=== PATIENT | female | born 1945 | race Caucasian/White ===

== ENCOUNTER 2020-07-12 07:20 | Emergency (ER) | payer MEDICARE, OTHER ==
[2020-07-12 07:36] VITALS: BP 164/81; PULSE 53
--- NOTE | 2020-07-12 08:03 | EDM.PDOC ---
ED HPI GENERAL MEDICAL PROBLEM - General Chief Complaint: Neuro Symptoms/Deficits Stated Complaint: LEG AND ARM WEAKNESS Time Seen by Provider: 07/12/20 07:30 Source of Information: Reports: Patient History Limitations: Reports: No Limitations - History of Present Illness INITIAL COMMENTS - FREE TEXT/NARRATIVE: 74 YO WF PRESENTS TO ER WITH WORSENING LEFT SIDED WEAKNESS THIS AM. PT WENT TO BED AROUND 10:30PM LAST NIGHT AND WHEN SHE WOKE THIS AM AROUND 6AM SHE PUT HER FEET ON THE FLOOR AND WHEN SHE STOOD UP SHE LOST HER BALANCE LANDING BACK ON THE BED. PT REPORTS SHE ATTEMPTED TO GET UP A FEW MORE TIMES AND EVENTUALLY WAS ABLE TO AMBULATE TO THE CAR FOR TRANSPORT TO THE HOSPITAL BY HER . PT REPORTS SHE HAS FIBROMYALGIA AND HAS WEAKNESS FROM TIME TO TIME BUT STATES THIS AM IT WAS MUCH WORSE. PT DENIES HEADACHE, CHEST PAIN, OR NECK PAIN. PT REPORTS DIZZINESS BUT DENIES DIAPHORESIS, NAUSEA OR SHORTNESS OF BREATH. PT REPORTS HISTORY OF PROGRESSIVE GENERALIZED WEAKNESS OVER THE LAST 2 MONTHS. PT DENIES FEVER/CHILLS, NO RECENT ILLNESS OR URI SYMPTOMS. Onset: Unknown/Unsure Duration: Getting Worse Location: Reports: Upper Extremity, Left, Lower Extremity, Left Severity: Moderate Improves with: Reports: None Worsens with: Reports: Movement Associated Symptoms: Reports: No Other Symptoms, Weakness. 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 - Related Data Allergies Allergy/AdvReac Type Severity Reaction Status Date / Time venom-honey bee Allergy Severe Hives Verified 07/12/20 07:52 [bee venom (honey bee)] meperidine HCl [From Demerol] Allergy Hives Verified 07/12/20 07:52 methylprednisolone sodium Allergy Numbness Verified 07/12/20 07:52 succinate [From Solu-Medrol] morphine Allergy Hives Verified 07/12/20 07:52 Penicillins Allergy Edema Verified 07/12/20 07:52 technetium-99m Allergy Itching Verified 07/12/20 07:52 triamcinolone acetonide Allergy Numbness Verified 07/12/20 07:52 [From Kenalog] Home Meds: Home Meds Acetaminophen [Tylenol Arthritis] 650 mg PO ASDIRECTED PRN 10/05/13 [History] Albuterol [Ventolin HFA] 2 puff INH Q4H PRN 10/05/13 [History] Amitriptyline [Elavil] 100 mg PO DAILY 10/05/13 [History] Aspirin [Adult Low Dose Aspirin EC] 81 mg PO DAILY 10/05/13 [History] Cholecalciferol (Vitamin D3) [Vitamin D-3] 2,000 unit PO DAILY 10/05/13 [History] Docusate Calcium [Stool Softener] 2 tab PO DAILY 10/05/13 [History] EPINEPHrine [Epinephrine] 0.3 mg IM ASDIRECTED PRN 10/05/13 [History] Metoprolol Tartrate 25 mg PO BID 10/05/13 [History] Nitroglycerin [Nitrostat] 0.4 mg SL ASDIRECTED PRN 10/05/13 [History] Omeprazole 20 mg PO BIDAC 10/05/13 [History] Calcium Carb, Citrate/Vit D3 [Calcium + D3 ER Tablet] 1 tab PO DAILY 08/19/16 [History] Escitalopram [Lexapro] 25 mg PO DAILY 08/19/16 [History] Fluconazole [Diflucan] 150 mg PO DAILY PRN 08/19/16 [History] Levothyroxine 25 mcg PO ACBREAKFAST 08/19/16 [History] Nystatin/Triamcin [Nystatin-Triamcinolone Cream] 1 applic TOP BID 08/19/16 [History] Simvastatin [Zocor] 10 mg PO BEDTIME 08/19/16 [History] Cetirizine HCl [Zyrtec] 10 mg PO DAILY PRN 08/22/16 [History] Albuterol Sulfate 3 ml NEB QID PRN 07/12/20 [History] Albuterol/Ipratropium [DuoNeb 3.0-0.5 MG/3 ML] 3 ml INH Q4H PRN 07/12/20 [History] Meloxicam [Mobic] 7.5 mg PO DAILY 07/12/20 [History] Non-Formulary Medication [NF Drug] 1 tsp PO QID PRN 07/12/20 [History] Oxybutynin Chloride [Oxybutynin Chloride ER] 10 mg PO DAILY 07/12/20 [History] buPROPion HCL [Bupropion HCl Sr] 150 mg PO BID 07/12/20 [History] ED ROS GENERAL - Review of Systems Review Of Systems: See Below Constitutional: Reports: Weakness HEENT: Reports: No Symptoms Respiratory: Reports: No Symptoms Cardiovascular: Reports: Lightheadedness Endocrine: Reports: No Symptoms GI/Abdominal: Reports: No Symptoms : Reports: No Symptoms Musculoskeletal: Reports: No Symptoms Skin: Reports: No Symptoms Neurological: Reports: Dizziness, Numbness, Pre-Existing Deficit, Difficulty Walking, Weakness, Gait Disturbance. Denies: Confusion, Headache, Trouble Sp eaking, Change in Speech Psychiatric: Reports: No Symptoms Hematologic/Lymphatic: Reports: No Symptoms Immunologic: Reports: No Symptoms ED EXAM, NEURO - Physical Exam Exam: See Below Exam Limited By: No Limitations General Appearance: Alert, WD/WN, No Apparent Distress Eye Exam: Bilateral Eye: EOMI, PERRL Throat/Mouth: Normal Inspection, Normal Lips, Normal Teeth, Normal Gums, Normal Oropharynx, Normal Voice, No Airway Compromise Head Exam: Atraumatic, Normocephalic Neck: Normal Inspection, Supple, Non-Tender, Full Range of Motion Respiratory/Chest: No Respiratory Distress, Lungs Clear, Normal Breath Sounds, No Accessory Muscle Use, Chest Non-Tender Cardiovascular: Normal Peripheral Pulses, Regular Rate, Rhythm, No Edema, No Gallop, No JVD, No Murmur, No Rub GI/Abdominal: Normal Bowel Sounds, Soft, Non-Tender, No Organomegaly, No Distention, No Abnormal Bruit, No Mass Neurological: Alert, Normal Mood/Affect, Normal Dorsiflexion, CN II-XII Intact, Normal Plantar Flexion, Normal Reflexes, Oriented x 3, Withdraws to Pain, Abnormal Light Touch, Difficulty Walking. No: Abnormal Finger to Nose, Abnormal Sensation, Abnormal Motor, Saddle Anesthesia Back Exam: Normal Inspection, Full Range of Motion, NT Extremities: Normal Inspection, Normal Range of Motion, Non-Tender, No Pedal Edema, Normal Capillary Refill Psychiatric: Normal Affect, Normal Mood Skin Exam: Warm, Dry, Intact, Normal Color, No Rash EKG INTERPRETATION EKG Date: 07/12/20 Time: 07:55 Rhythm: NSR Rate (Beats/Min): 50 [place]: Normal P-Wave: Present QRS: Normal ST-T: Normal QT: Normal Course - Vital Signs Last Recorded V/S: Last Vital Signs Temp 36.2 C 07/12/20 07:26 Pulse 53 L 07/12/20 07:26 Resp 18 07/12/20 07:26 BP 164/81 H 07/12/20 07:26 Pulse Ox 96 07/12/20 07:26 - Orders/Labs/Meds Orders: Active Orders 24 hr Category Date Time Status EKG Documentation Completion [RC] ASDIRECTED Care 07/12/20 07:43 Active Sodium Chloride 0.9% [Normal Saline] 1,000 ml Med 07/12/20 08:30 Active IV ASDIRECTED EKG 12 Lead [EK] Stat Ther 07/12/20 07:42 Ordered Medication Orders Sodium Chloride (Normal Saline) 1,000 mls @ 125 mls/hr IV ASDIRECTED MARCELINA Labs: Laboratory Tests 07/12/20 07/12/20 07/12/20 Range/Units 07:32 07:32 07:32 WBC 6.55 (5.00-10.00) 10^3/uL RBC 3.62 L (3.80-5.50) 10^6/uL Hgb 12.4 (12.0-16.0) g/dL Hct 36.6 L (37.0-47.0) % MCV 101.1 H (82.0-92.0) fL MCH 34.3 H (27.0-31.0) pg MCHC 33.9 (32.0-36.0) g/dL RDW 12.7 (11.5-14.5) % Plt Count 243 (150-400) 10^3/uL MPV 8.8 (7.4-10.4) fL Immature Gran % (Auto) 0.5 (0.0-5.0) % Neut % (Auto) 56.4 (50.0-70.0) % Lymph % (Auto) 29.8 (20.0-40.0) % [place] % (Auto) 9.3 H (2.0-8.0) % Eos % (Auto) 3.5 H (1.0-3.0) % Baso % (Auto) 0.5 (0.0-1.0) % Neut # (Auto) 3.70 (2.50-7.00) 10^3/uL Lymph # (Auto) 1.95 (1.00-4.00) 10^3/uL [place] # (Auto) 0.61 (0.10-0.80) 10^3/uL Eos # (Auto) 0.23 (0.10-0.30) 10^3/uL Baso # (Auto) 0.03 (0.00-0.10) 10^3/uL Immature Gran # (Auto) 0.03 (0.00-0.50) 10^3/uL PT 9.7 (9.2-11.2) SEC INR 1.0 (0.9-1.1) APTT 25.3 (22.8-31.4) SEC Sodium 130 L (136-145) mmol/L Potassium 4.4 (3.3-5.3) mmol/L Chloride 96 L (98-115) mmol/L Carbon Dioxide 28.8 (21.0-32.0) mmol/L Anion Gap 9.6 (5-15) mmol/L BUN 24 (6-25) mg/dL Creatinine 0.79 (0.51-1.17) mg/dL Est Cr Clr Drug Dosing 50.12 mL/min Estimated GFR (MDRD) > 60 mL/min Glucose 108 H (75 - 99) mg/dL Calcium 8.0 L (8.7-10.3) mg/dL Creatine Kinase 72 (26-276) U/L CK-MB (CK-2) 2.00 (0.00-4.30) ng/mL Troponin I 0.07 (0.00-0.070) ng/mL Meds: Medications Generic Name Dose Route Start Last Admin Trade Name Freq PRN Reason Stop Dose Admin Sodium Chloride 1,000 mls @ 125 mls/hr 07/12/20 08:30 Normal Saline IV ASDIRECTED MARCELINA Discontinued Medications Generic Name Dose Route Start Last Admin Trade Name Freq PRN Reason Stop Dose Admin Aspirin 324 mg 07/12/20 08:42 Aspirin PO 07/12/20 08:43 ONETIME ONE - Radiology Interpretation Free Text/Narrative:: CT HEAD-NAD CXR-NAD Departure - Departure Time of Disposition: 08:56 Disposition: DC/Tfer to Acute Hospital 02 Condition: Fair Clinical Impression: Weakness, Bradycardia, Hyponatremia - Discharge Information Forms: ED Department Discharge, Interfacility Transfer EMTALA Sepsis Event Note (ED) - Evaluation Sepsis Screening Result: No Definite Risk - Focused Exam Vital Signs: Vital Signs Temp Pulse Resp BP Pulse Ox 07/12/20 07:26 36.2 C 53 L 18 164/81 H 96 - My Orders Last 24 Hours: My Active Orders 07/12/20 07:42 EKG 12 Lead [EK] Stat 07/12/20 07:43 EKG Documentation Completion [RC] ASDIRECTED 07/12/20 08:30 Sodium Chloride 0.9% [Normal Saline] 1,000 ml IV ASDIRECTED - Assessment/Plan Last 24 Hours: My Active Orders 07/12/20 07:42 EKG 12 Lead [EK] Stat 07/12/20 07:43 EKG Documentation Completion [RC] ASDIRECTED 07/12/20 08:30 Sodium Chloride 0.9% [Normal Saline] 1,000 ml IV ASDIRECTED Assessment:: 1. WEAKNESS 2. HYPONATREMIA 3. BRADYCARDIA Plan: 1. TRANSFER TO [facility] FOR FURTHER EVALUATION AND TREATMENT- DR PINK 2. SUPPORTIVE CARE 3. NS@125CC/HR 4. ASA 325MG NOW 5. O2 NEEDED
[2020-07-12 08:14] LABS: ANION GAP 9.6 mmol/L (5-15); CHLORIDE,CL 96 mmol/L (98-115); SODIUM,NA 130 mmol/L (136-145)
--- NOTE | 2020-07-12 08:19 | CT ---
[id number] CT/CT Head Stroke Protocol EXAM: CT Head Stroke Protocol CLINICAL DATA: INCREASED WEAKNESS/NUMBNESS COMPARISON STUDY: None FINDINGS: No intracranial hemorrhage, extra-axial fluid collection, mass, or acute ischemia. No hydrocephalus. Mild to moderate diffuse parenchymal atrophy and areas of hypodensity in the subcortical and periventricular white matter. Combination of findings are commonly seen as sequela of chronic small vessel disease. Paranasal sinuses and mastoid air cells are clear. IMPRESSION: No acute intracranial findings. Results relayed to Jaylon Trujillo at time of dictation. Catracho Cole MD 07/12/20 0818 Thank you for allowing us to participate in the care of your patient.
--- NOTE | 2020-07-12 08:20 | CR ---
[id number] RAD/RAD Chest PA And Lateral EXAM: RAD Chest PA And Lateral INDICATION: WEAKNESS. COMPARISON: None. DISCUSSION: Cardiomediastinal silhouette is normal in size and contour. No infiltrate, effusion, pneumothorax, or edema. IMPRESSION: Negative examination of the chest. Catracho Cole MD 07/12/20 0818 Thank you for allowing us to participate in the care of your patient.
[2020-07-12 08:22] LABS: PTT,PARTIAL THROMBOPLSTIN TIME 25.3 SEC (22.8-31.4)
[2020-07-12] MEDS ORDERED: Sodium Chloride 0.9% 1,000 ML IV SCH (08:30)
[2020-07-12] MEDS ORDERED: Aspirin 81 MG Tab.Chew PO ONE (08:42)
== END 2020-07-12 10:20 ==
LOC: KA.ED 07:20
DX: E87.1 Hypo-osmolality and hyponatremia (principal); R00.1 Bradycardia, unspecified; Z91.030 Bee allergy status; Z88.5 Allergy status to narcotic agent; Z88.0 Allergy status to penicillin; Z88.8 Allergy status to other drugs, medicaments and biological substances; Z79.82 Long term (current) use of aspirin; Z79.899 Other long term (current) drug therapy
CPT/HCPCS: 36415; 70450; 71046; 80048; 82550; 82553; 84484; 85025; 85610; 85730; 96360; 99284; 99285-25; A9270-GY; J7030

== ENCOUNTER 2020-10-10 14:03 | Emergency (ER) | payer MEDICARE, OTHER ==
[2020-10-10] MEDS: EPINEPHrine 1:10,000 1 MG/10 ML Syringe IVPUSH ONE ×5 (14:08→14:44)
[2020-10-10] MEDS: Sodium Chloride 0.9% 1,000 ML IV ONE (14:11)
[2020-10-10] MEDS ORDERED: Sodium Chloride 0.9% 10 ML Syringe FLUSH PRN (14:11)
[2020-10-10] MEDS: Amiodarone 150 MG/3 ML SDV IVPUSH ONE (14:15)
[2020-10-10] MEDS: Sodium Bicarbonate 8.4% 50 MEQ/50 ML Syringe IVPUSH SCH (14:28)
[2020-10-10] MEDS: Norepinephrine 4 MG in Dextrose 5% in Water 246 ML IV SCH ×2 (14:46)
[2020-10-10 14:47] LABS: PTT,PARTIAL THROMBOPLSTIN TIME 28.6 SEC (22.8-31.4)
--- NOTE | 2020-10-10 14:50 | EDM.PDOC ---
ED HPI GENERAL MEDICAL PROBLEM - General Chief Complaint: Respiratory Problem Stated Complaint: CARDIAC ARREST Time Seen by Provider: 10/10/20 14:03 Source of Information: Reports: EMS History Limitations: Reports: Respiratory Distress - History of Present Illness INITIAL COMMENTS - FREE TEXT/NARRATIVE: 74 YO WF PRESENTS TO ER IN CARDIAC ARREST FROM HOME. PT CALLED EMS DUE TO R ESPIRATORY DISTRESS. UPON ARRIVAL BY EMS PT BECAME UNRESPONSIVE. CPR WAS PERFORMED. UPON ARRIVAL TO ER EPI/BICARB/AMIODARONE WERE GIVEN AND PULSE WITH RETURN OF CIRCULATION. TRANSFER HAS BEEN ARRANGED BY [facility] Onset: Sudden Location: Reports: Generalized Severity: Severe - Related Data Allergies Allergy/AdvReac Type Severity Reaction Status Date / Time venom-honey bee Allergy Severe Hives Verified 07/12/20 07:52 [bee venom (honey bee)] meperidine HCl [From Demerol] Allergy Hives Verified 07/12/20 07:52 methylprednisolone sodium Allergy Numbness Verified 07/12/20 07:52 succinate [From Solu-Medrol] morphine Allergy Hives Verified 07/12/20 07:52 Penicillins Allergy Edema Verified 07/12/20 07:52 technetium-99m Allergy Itching Verified 07/12/20 07:52 triamcinolone acetonide Allergy Numbness Verified 07/12/20 07:52 [From Kenalog] Home Meds: Home Meds Acetaminophen [Tylenol Arthritis] 650 mg PO ASDIRECTED PRN 10/05/13 [History] Albuterol [Ventolin HFA] 2 puff INH Q4H PRN 10/05/13 [History] Amitriptyline [Elavil] 100 mg PO DAILY 10/05/13 [History] Aspirin [Adult Low Dose Aspirin EC] 81 mg PO DAILY 10/05/13 [History] Cholecalciferol (Vitamin D3) [Vitamin D-3] 2,000 unit PO DAILY 10/05/13 [History] Docusate Calcium [Stool Softener] 2 tab PO DAILY 10/05/13 [History] EPINEPHrine [Epinephrine] 0.3 mg IM ASDIRECTED PRN 10/05/13 [History] Metoprolol Tartrate 25 mg PO BID 10/05/13 [History] Nitroglycerin [Nitrostat] 0.4 mg SL ASDIRECTED PRN 10/05/13 [History] Omeprazole 20 mg PO BIDAC 10/05/13 [History] Calcium Carb, Citrate/Vit D3 [Calcium + D3 ER Tablet] 1 tab PO DAILY 08/19/16 [History] Escitalopram [Lexapro] 25 mg PO DAILY 08/19/16 [History] Fluconazole [Diflucan] 150 mg PO DAILY PRN 08/19/16 [History] Levothyroxine 25 mcg PO ACBREAKFAST 08/19/16 [History] Nystatin/Triamcin [Nystatin-Triamcinolone Cream] 1 applic TOP BID 08/19/16 [History] Simvastatin [Zocor] 10 mg PO BEDTIME 08/19/16 [History] Cetirizine HCl [Zyrtec] 10 mg PO DAILY PRN 08/22/16 [History] Albuterol Sulfate 3 ml NEB QID PRN 07/12/20 [History] Albuterol/Ipratropium [DuoNeb 3.0-0.5 MG/3 ML] 3 ml INH Q4H PRN 07/12/20 [History] Meloxicam [Mobic] 7.5 mg PO DAILY 07/12/20 [History] Non-Formulary Medication [NF Drug] 1 tsp PO QID PRN 07/12/20 [History] Oxybutynin Chloride [Oxybutynin Chloride ER] 10 mg PO DAILY 07/12/20 [History] buPROPion HCL [Bupropion HCl Sr] 150 mg PO BID 07/12/20 [History] Past Medical History HEENT History: Reports: Hard of Hearing, Impaired Vision Cardiovascular History: Reports: CAD, High Cholesterol, Hypertension Respiratory History: Reports: Asthma, Bronchitis, Recurrent Gastrointestinal History: Reports: Diverticulosis, GERD Genitourinary History: Reports: Other (See Below) Other Genitourinary History: overactive bladder, atrophic vaginitis Musculoskeletal History: Reports: Fibromyalgia, Osteoarthritis Psychiatric History: Reports: Depression Endocrine/Metabolic History: Reports: Multinodular Thyroid - Infectious Disease History Infectious Disease History: Reports: Herpes - Past Surgical History Cardiovascular Surgical History: Reports: Percutaneous Transluminal Angioplasty Respiratory Surgical History: Reports: None GI Surgical History: Reports: Colonoscopy Endocrine Surgical History: Reports: Thyroid Biopsy Social & Family History - Family History Family Medical History: No Pertinent Family History ED ROS GENERAL - Review of Systems Review Of Systems: Comprehensive ROS is negative, except as noted in HPI. Constitutional: Denies: Fever, Chills ED EXAM, CPR - Physical Exam Exam: See Below Limited By: Unresponsive General Appearance: Severe Distress Throat/Mouth: Normal Inspection, Normal Lips, Normal Teeth, Normal Gums, Normal Oropharynx, Normal Voice, No Airway Compromise Head: Atraumatic, Normocephalic Respiratory Chest: Respiratory Distress Cardiovascular: Normal Pulse, Normal Peripheral Pulses, Regular Rate, Rhythm, No Gallop, No JVD, No Murmur, No Rub GI/Abdominal Exam: Soft, No Mass, Distended #1 Interpretation EKG Date: 10/10/20 Time: 14:28 Rhythm: NSR Rate (Beats/Min): 91 [place]: LAD-Left [place] Deviation Comparison: NA - No Prior EKG Course - Orders/Labs/Meds Orders: Active Orders 24 hr Category Date Time Status Blood Pressure Mgt: Sepsis [RC] Q15MX2 Care 10/10/20 14:12 Active Cardiac Monitoring [RC] CONTINUOUS Care 10/10/20 14:12 Active EKG Documentation Completion [RC] ASDIRECTED Care 10/10/20 14:12 Active COMPREHENSIVE METABOLIC PN,CMP [CHEM] Stat Lab 10/10/20 14:19 Received CULTURE BLOOD [BC] Stat Lab 10/10/20 14:12 Ordered CULTURE BLOOD [BC] Stat Lab 10/10/20 14:12 Ordered REFLEX LACTIC ACID YES OR NO [CHEM] Routine Lab 10/10/20 14:53 Received TROPONIN I [CHEM] Stat Lab 10/10/20 14:19 Received UA W/MICROSCOPIC [URIN] Stat Lab 10/10/20 14:11 Ordered Sodium Chloride 0.9% [Saline Flush] Med 10/10/20 14:11 Active 10 ml FLUSH Q8HR PRN Blood Culture x2 Reflex Set [OM.PC] Stat Oth 10/10/20 14:11 Ordered Saline Lock Insert [OM.PC] Stat Oth 10/10/20 14:11 Ordered Severe Sepsis Onset Time [OM.PC] Stat Oth 10/10/20 14:11 Ordered EKG 12 Lead [EK] Stat Ther 10/10/20 14:11 Ordered Medication Orders Sodium Chloride (Saline Flush) 10 ml FLUSH Q8HR PRN PRN Reason: keep vein open Labs: Laboratory Tests 10/10/20 10/10/20 10/10/20 Range/Units 14:19 14:19 14:19 WBC 15.59 H (5.00-10.00) 10^3/uL RBC 3.37 L (3.80-5.50) 10^6/uL Hgb 11.2 L (12.0-16.0) g/dL Hct 36.3 L (37.0-47.0) % MCV 107.7 H D (82.0-92.0) fL MCH 33.2 H (27.0-31.0) pg MCHC 30.9 L (32.0-36.0) g/dL RDW 13.4 (11.5-14.5) % Plt Count 249 (150-400) 10^3/uL MPV 8.8 (7.4-10.4) fL Add Manual Diff Yes Neutrophils % (Manual) 62 (50-70) % Lymphocytes % (Manual) 26 (20-40) % Monocytes % (Manual) 7 (2-8) % Absolute Neutrophils 9.6658 Lymphocytes # (Manual) 4.8329 Monocytes # (Manual) 1.0913 Reactive Lymphocytes Few Platelet Estimate Adequate Hypochromasia 1+ slight Macrocytosis 2+ moderate Target Cells Rare PT 10.9 (9.2-11.2) SEC INR 1.1 (0.9-1.1) APTT 28.6 (22.8-31.4) SEC Sodium 134 L (136-145) mmol/L Potassium 5.3 (3.3-5.3) mmol/L Chloride 99 (98-115) mmol/L Carbon Dioxide 24.2 (21.0-32.0) mmol/L Anion Gap 16.1 H (5-15) mmol/L BUN 30 H (6-25) mg/dL Creatinine 1.07 (0.51-1.17) mg/dL Est Cr Clr Drug Dosing TNP Estimated GFR (MDRD) 50 mL/min Glucose 232 H (75 - 99) mg/dL Lactic Acid (0.4-2.0) mmol/L Calcium 8.7 (8.7-10.3) mg/dL Total Bilirubin 0.3 (0.2-1.0) mg/dL AST 58 H (15-37) U/L ALT 65 (12-78) U/L Alkaline Phosphatase 89 (46-116) IU/L Total Protein 6.2 L (6.4-8.2) g/dL Albumin 3.33 (3.00-4.80) g/dL SARS CoV-2 RNA Rapid PERFECTO (NEGATIVE) 10/10/20 10/10/20 Range/Units 14:19 14:30 WBC (5.00-10.00) 10^3/uL RBC (3.80-5.50) 10^6/uL Hgb (12.0-16.0) g/dL Hct (37.0-47.0) % MCV (82.0-92.0) fL MCH (27.0-31.0) pg MCHC (32.0-36.0) g/dL RDW (11.5-14.5) % Plt Count (150-400) 10^3/uL MPV (7.4-10.4) fL Add Manual Diff Neutrophils % (Manual) (50-70) % Lymphocytes % (Manual) (20-40) % Monocytes % (Manual) (2-8) % Absolute Neutrophils Lymphocytes # (Manual) Monocytes # (Manual) Reactive Lymphocytes Platelet Estimate Hypochromasia Macrocytosis Target Cells PT (9.2-11.2) SEC INR (0.9-1.1) APTT (22.8-31.4) SEC Sodium (136-145) mmol/L Potassium (3.3-5.3) mmol/L Chloride (98-115) mmol/L Carbon Dioxide (21.0-32.0) mmol/L Anion Gap (5-15) mmol/L BUN (6-25) mg/dL Creatinine (0.51-1.17) mg/dL Est Cr Clr Drug Dosing Estimated GFR (MDRD) mL/min Glucose (75 - 99) mg/dL Lactic Acid 7.3 H (0.4-2.0) mmol/L Calcium (8.7-10.3) mg/dL Total Bilirubin (0.2-1.0) mg/dL AST (15-37) U/L ALT (12-78) U/L Alkaline Phosphatase (46-116) IU/L Total Protein (6.4-8.2) g/dL Albumin (3.00-4.80) g/dL SARS CoV-2 RNA Rapid PERFECTO Negative (NEGATIVE) Meds: Medications Generic Name Dose Route Start Last Admin Trade Name Freq PRN Reason Stop Dose Admin Sodium Chloride 10 ml 10/10/20 14:11 Saline Flush FLUSH Q8HR PRN keep vein open Discontinued Medications Generic Name Dose Route Start Last Admin Trade Name Freq PRN Reason Stop Dose Admin Sodium Chloride 1,000 mls @ 1,000 drops/min 10/10/20 14:11 Normal Saline IV 10/10/20 14:25 BOLUS ONE Protocol Departure - Departure Time of Disposition: 14:54 Disposition: DC/Tfer to Acute Hospital 02 Condition: Critical Clinical Impression: Cardiac arrest, Respiratory arrest - Discharge Information Referrals: Isabelle Stanley MD [Primary Care Provider] - Forms: ED Department Discharge, Interfacility Transfer EMTALA - My Orders Last 24 Hours: My Active Orders 10/10/20 14:11 UA W/MICROSCOPIC [URIN] Stat Sodium Chloride 0.9% [Saline Flush] 10 ml FLUSH Q8HR PRN Blood Culture x2 Reflex Set [OM.PC] Stat Saline Lock Insert [OM.PC] Stat Severe Sepsis Onset Time [OM.PC] Stat EKG 12 Lead [EK] Stat 10/10/20 14:12 Blood Pressure Mgt: Sepsis [RC] Q15MX2 Cardiac Monitoring [RC] CONTINUOUS EKG Documentation Completion [RC] ASDIRECTED CULTURE BLOOD [BC] Stat CULTURE BLOOD [BC] Stat 10/10/20 14:19 COMPREHENSIVE METABOLIC PN,CMP [CHEM] Stat TROPONIN I [CHEM] Stat 10/10/20 14:53 REFLEX LACTIC ACID YES OR NO [CHEM] Routine - Assessment/Plan Last 24 Hours: My Active Orders 10/10/20 14:11 UA W/MICROSCOPIC [URIN] Stat Sodium Chloride 0.9% [Saline Flush] 10 ml FLUSH Q8HR PRN Blood Culture x2 Reflex Set [OM.PC] Stat Saline Lock Insert [OM.PC] Stat Severe Sepsis Onset Time [OM.PC] Stat EKG 12 Lead [EK] Stat 10/10/20 14:12 Blood Pressure Mgt: Sepsis [RC] Q15MX2 Cardiac Monitoring [RC] CONTINUOUS EKG Documentation Completion [RC] ASDIRECTED CULTURE BLOOD [BC] Stat CULTURE BLOOD [BC] Stat 10/10/20 14:19 COMPREHENSIVE METABOLIC PN,CMP [CHEM] Stat TROPONIN I [CHEM] Stat 10/10/20 14:53 REFLEX LACTIC ACID YES OR NO [CHEM] Routine Assessment:: 1. CARDIAC ARREST 2. RESPIRATORY ARREST Plan: 1. TRANSFER TO [facility]- DR COL[facility]N 2. SUPPORTIVE CARE 3. [facility] 4. [facility] [place]. [facility] TUBE AND RESPIRATORY SUPPORT
[2020-10-10 14:57] LABS: ANION GAP 16.1 mmol/L (5-15); CHLORIDE,CL 99 mmol/L (98-115); SODIUM,NA 134 mmol/L (136-145)
[2020-10-10] MEDS: EPINEPHrine 4 MG in Dextrose 5% in Water 250 ML IV SCH ×2 (14:58)
--- NOTE | 2020-10-10 15:18 | CR ---
[id number] RAD/RAD Chest PA or AP 1V EXAM: RAD Chest PA or AP 1V INDICATION: INTUBATION. COMPARISON: July 12, 2020. DISCUSSION: No history other than "intubation" was provided. Findings are within this limitation. Endotracheal tube in place. Tip projects 35 mm above the rosie. Cardiomediastinal silhouette is normal in size and contour. Lungs are clear. No pleural effusion or pneumothorax. IMPRESSION: As above. Catracho Cole MD 10/10/20 1448 Thank you for allowing us to participate in the care of your patient.
== END 2020-10-10 15:35 ==
LOC: KA.ED 14:03
DX: I46.9 Cardiac arrest, cause unspecified (principal); I10 Essential (primary) hypertension; I25.10 Atherosclerotic heart disease of native coronary artery without angina pectoris; E78.00 Pure hypercholesterolemia, unspecified; K21.9 Gastro-esophageal reflux disease without esophagitis; F32.9 Major depressive disorder, single episode, unspecified; M19.90 Unspecified osteoarthritis, unspecified site; Z91.030 Bee allergy status; Z88.8 Allergy status to other drugs, medicaments and biological substances; Z88.5 Allergy status to narcotic agent; Z88.0 Allergy status to penicillin; Z79.82 Long term (current) use of aspirin; Z79.899 Other long term (current) drug therapy; Z20.828 Contact with and (suspected) exposure to other viral communicable diseases
CPT/HCPCS: 36415; 36680; 43752; 51702; 71045; 80053; 83605; 84484; 85025; 85610; 85730; 92950; 93005; 96361; 96365; 96368; 96375; 96376; 99285-25; J0171; J0282; J7030; J7060; U0002